=== PATIENT | female | born 1935 | race Hispanic/Latino ===

== ENCOUNTER → 2017-12-31 | Day surgery (SDC) | payer MEDICARE ==
[2017-12-30 13:43] LABS: BASOPHILS % 0.4 % (0.0-1.0); EOSINOPHILS # (AUTO) 0.1 (0.0-0.4); EOSINOPHILS % 1.5 % (0.0-6.0); HEMATOCRIT 30.9 % (34.2-44.1); HEMOGLOBIN 9.9 g/dL (12.0-16.0); LYMPHOCYTES # (AUTO) 2.3 (1.0-3.2); LYMPHOCYTES % 24.6 % (18.0-39.1); MEAN CORPUSCULAR HEMOGLOBIN 30.7 pg (28-32); MONOCYTES # (AUTO) 0.9 (0.2-0.8); MONOCYTES % 9.3 % (4.4-11.3); NEUTROPHILS % 63.8 % (38.7-80.0); PLATELET COUNT 208 x10e3/uL (140-360); RED BLOOD COUNT 3.22 x10e6/uL (3.6-5.1); RED CELL DISTRIBUTION WIDTH 13.8 % (11.7-14.4)
[2017-12-30 13:55] LABS: INR 1.33; PROTHROMBIN TIME 15.5 seconds (11.9-14.5)
[2017-12-30 14:05] LABS: ALBUMIN 3.6 g/dL (3.5-5.0); ALBUMIN/GLOBULIN RATIO 0.8 (0.8-2.0); ANION GAP 13.4 mmol/L (8-16); CALCIUM 9.4 mg/dL (8.4-10.2); CHOL/HDL RATIO 3.3 (3.0-3.6); CREATININE, SERUM 1.4 mg/dL (0.57-1.11); POTASSIUM 4.4 mmol/L (3.5-5.1)
[~2017-12-31] MED LIST: ATORVASTATIN CA40 MG PO; FENTANYL CITRATE/PF 100MCG/2 ML INJ ONE; GLIPIZIDE5 MG PO; HEPARIN SOD/SOD CHLORIDE 2,000 ML ONE; IOPAMIDOL 370 MG/ML 200 ML INFUS..BTL INJ ONE; ISOSORBIDE DINI20 MG PO; LIDOCAINE HCL 2% LOCAL 20 ML VIAL ONE; LOSARTAN POTASS25 MG PO; METFORMIN HCL500 MG PO; METOPROLOL SUCC25 MG PO; MIDAZOLAM HCL 2 MG/2 ML VIAL ONE; SODIUM CHLORIDE 0.9% 1000ML 1,000 ML ONE; TERAZOSIN HCL1 MG PO; WARFARIN SODIU2.5 MG PO
[2017-12-31 08:54] VITALS: BP 175/79
--- NOTE | 2017-12-31 13:01 | Operative Report ---
DATE OF PROCEDURE: PROCEDURES PERFORMED 1. Left heart catheterization. 2. Selective coronary angiography x2. 3. A 6-Tristanian Angio-Seal closure. PROCEDURE INDICATION: Severe systolic heart failure requiring LifeVest placement at outside hospital with no angiogram performed at that time. Concerned for etiology of CHF as well as symptoms concerning for stable angina. PROCEDURE COMPLICATIONS: None. ESTIMATED BLOOD LOSS: Less than 15 mL. PROCEDURE SUMMARY: After consent was obtained, patient was prepped and draped in a sterile fashion, and the right femoral site was locally infiltrated with 2% lidocaine. Access was obtained using a micropuncture kit, and a 6-Tristanian sheath was placed. A 6-Tristanian JL-4 and JR-4 catheters were used for assessment of the left main and then the right coronary artery vessels respectively. The JL-4 was used to cross the aortic valve for hemodynamic measurements, and a left ventriculogram was performed. The following findings were observed: 1. LV pressure was 158/9 with end-diastolic pressure of 23 to 25. 2. The aortic pressure was 156/52. 3. LV-gram reveals preserved left ventricular systolic function, normal regional wall motion with left ventricular ejection fraction of more than 50%. 4. Left main with less than 30% stenosis, large in caliber, gives an LAD and a circumflex. 5. The LAD has moderate calcifications and 30% stenosis in the proximal portion. It gives 3 diagonals and multiple septal perforators. 6. There are mild to moderate calcifications of the circumflex, a medium caliber 1st obtuse marginal, a small caliber 2nd obtuse marginal, and 2 small to medium caliber left posterolateral branches. 7. The right coronary artery is a dominant vessel, overall small in caliber. It has a 50% distal stenosis prior to giving an RPDA. CONCLUSION 1. Mild to moderate multivessel coronary artery disease. 2. History of systolic heart failure with now recovered ejection fraction. 3. Mild uncontrolled hypertension and elevated left ventricular end-diastolic pressure. RECOMMENDATIONS 1. Optimize medical therapy. 2. Has abnormal LFTs and preprocedure labs today. Statin to be placed on hold and patient advised to discuss further with primary doctor regarding GI consultation. 3. Also anemic. Advised on workup as outpatient. 4. Creatinine of 1.4. Limited dye protocol done today. Outpatient monitoring and followup advised, too. Job#: [id number]
== END | disposition home or self-care (01) ==
LOC: CATH LAB 07:50
PROVIDERS: ATTEND Internal Medicine Cardiovascular Disease
DX: I25.10 Atherosclerotic heart disease of native coronary artery without angina pectoris (principal); I11.0 Hypertensive heart disease with heart failure; I50.21 Acute systolic (congestive) heart failure; I48.0 Paroxysmal atrial fibrillation; J44.9 Chronic obstructive pulmonary disease, unspecified; E11.9 Type 2 diabetes mellitus without complications; Z79.01 Long term (current) use of anticoagulants
CPT/HCPCS: 36415; 77002; 80053; 80061; 85025; 85610; 93005; 93458; C1769; J2001; J2250; J7030; Q9967; 36140; 93452